=== PATIENT | male | born 1985 | race Caucasian/White ===

== ENCOUNTER 2017-07-03 10:18 | Emergency (ER) | payer OTHER ==
[~2017-07-03] VITALS: Ht 172.7 cm; Wt 90.0 kg
[2017-07-03 10:21] VITALS: BP 134/95
[2017-07-03] MEDS ORDERED: DEXAMETHASONE 10 MG/ML VIAL IM ONE (11:30)
== END 2017-07-03 11:41 | disposition home or self-care (01) ==
LOC: ER 11:05
DX: K12.2 Cellulitis and abscess of mouth (principal)
CPT/HCPCS: 96372; 99283; J1100